=== PATIENT | male | born 1980 | race Caucasian/White ===

== ENCOUNTER 2020-12-26 14:26 | Emergency (ER) | payer MEDICAID ==
[~2020-12-26] VITALS: Ht 175.3 cm; Wt 99.8 kg
--- NOTE | 2020-12-26 14:30 | NUR ---
Patient to ER bed 8 to gown for evaluation. Side rails up. Report given to Hadley MARION.
--- NOTE | 2020-12-26 14:42 | NUR ---
Pt came to ER stating "my heart feels like its skipping a beat". Pt placed into [facility], EKG done, VSS, no obvious signs of distress noted, awaiting MD
--- NOTE | 2020-12-26 14:43 | NUR ---
ER at bedside examining patient.
[2020-12-26 15:09] LABS: BASOPHILS % (AUTO) 0.3 % (0.0-2.0); EOSINOPHILS # (AUTO) 0.1 K/uL (0.0-0.4); EOSINOPHILS % (AUTO) 1.5 % (0.0-4.0); HEMATOCRIT 43.4 % (36-54); HEMOGLOBIN 14.6 g/dL (14.0-18.0); LYMPHOCYTES # (AUTO) 2.5 K/uL (1.0-5.5); LYMPHOCYTES % (AUTO) 38.2 % (20.5-51.5); MEAN CORPUSCULAR HEMOGLOBIN 28 pg (27-31); MEAN CORPUSCULAR HGB CONC 34 % (32-36); MEAN CORPUSCULAR VOLUME 83 fL (79.0-98.0); MONOCYTES # (AUTO) 0.4 K/uL (0.0-1.0); MONOCYTES % (AUTO) 5.6 % (1.7-9.3); NEUTROPHILS # (AUTO) 3.6 K/uL (1.8-7.7); NEUTROPHILS % (AUTO) 54.4 % (40.0-70.0); PLATELET COUNT (AUTO) 281 K/uL (130-430); RED BLOOD CELL COUNT(AUTO) 5.21 MIL/uL (4.2-6.2); RED CELL DISTRIBUTION WIDTH 13.2 % (9.0-15.0); WHITE BLOOD COUNT (AUTO) 6.6 K/uL (4.8-10.8)
[2020-12-26 15:14] LABS: CALCIUM 8.2 mg/dL (8.4-11.0); CREATININE 0.96 mg/dL (0.55-1.30); POTASSIUM 3.6 mmol/L (3.5-5.1)
[2020-12-26 15:18] LABS: PROTHROMBIN TIME 10.7 SECS (9.5-12.5)
[2020-12-26 15:29] LABS: ALBUMIN 4.1 g/dL (3.4-4.8); FREE T4 (FREE THYROXINE) 1.1 ng/dl (0.8-1.5); THYROID STIMULATING HORMONE 0.89 uIu/mL (0.36-3.74); TOTAL BILIRUBIN 0.2 mg/dL (0.0-1.0)
--- NOTE | 2020-12-26 15:30 | NUR ---
resting in [facility] comfortably at this time.
--- NOTE | 2020-12-26 16:39 | NUR ---
Patient given written and verbal discharge instructions and verbalizes understanding. ER MD discussed with patient the results and treatment provided. Patient in stable condition. ID arm band removed. No Rx given. Patient educated on pain management and to follow up with PMD. Pain Scale 0/10. Opportunity for questions provided and answered. Medication side effect fact sheet provided.
== END 2020-12-26 16:38 | disposition home or self-care (01) ==
LOC: SED 14:26
DX: R00.2 Palpitations (principal); F12.90 Cannabis use, unspecified, uncomplicated
CPT/HCPCS: 36415; 71045; 80053; 82550; 84439; 84443; 84484; 85025; 85610-TC; 85730-TC; 93005; 99284